=== PATIENT | female | born 1965 | race Caucasian/White ===

== ENCOUNTER 2020-09-28 08:14 | Emergency (ER) | payer OTHER, BC ==
[2020-09-28] MEDS ORDERED: Sodium Chloride 0.9% 10 ML Syringe FLUSH PRN ×2 (08:25)
[2020-09-28] MEDS ORDERED: fentaNYL 100 MCG/2 ML SDV IVPUSH ONE (08:25)
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
[2020-09-28 09:19] LABS: CHLORIDE,CL 103 mmol/L (98-107); SODIUM,NA 137 mmol/L (136-145)
[2020-09-28 09:20] LABS: ANION GAP 13.4 mmol/L (10-20)
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
[2020-09-28 09:55] LABS: BARBITURATE SCREEN,URINE NEGATIVE (NEGATIVE); BENZODIAZEPINES SCREEN,URINE NEGATIVE (NEGATIVE); EDDP,URINE SCREEN NEGATIVE (NEGATIVE); METHAMPHETAMINE SCREEN, URINE NEGATIVE (NEGATIVE); TCA SCREEN,URINE NEGATIVE (NEGATIVE); THC SCREEN,URINE 50 NG/ML NEGATIVE (NEGATIVE)
[2020-09-28] MEDS ORDERED: fentaNYL 100 MCG/2 ML SDV ONE (10:34)
== END 2020-09-28 10:35 | disposition home or self-care (01) ==
LOC: VM.ED 08:14
DX: S22.019A Unspecified fracture of first thoracic vertebra, initial encounter for closed fracture (principal); S22.029A Unspecified fracture of second thoracic vertebra, initial encounter for closed fracture; S40.011A Contusion of right shoulder, initial encounter; S00.01XA Abrasion of scalp, initial encounter; V48.6XXA Car passenger injured in noncollision transport accident in traffic accident, initial encounter
CPT/HCPCS: 36415; 70450; 71250; 72125; 74176; 80053; 80305; 80307; 81001; 85025; 93005; 93010; 96374; 99284; J3010